=== PATIENT | male | born 1995 | race Caucasian/White ===

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

== ENCOUNTER → 2020-06-08 | Outpatient (CLI) | payer MEDICAID ==
[2020-06-08 13:09] LABS: Appearance,Urine Clear (Clear); Bilirubin,Urine Negative (Negative); Blood,Urine Negative (Negative); Color,Urine Yellow; Glucose,Urine (UA) Negative (Negative); Ketones,Urine Negative (Negative); Leukocyte Esterase,Urine Negative (Negative); Nitrite,Urine Negative (Negative); PH, Urine 7.5 (5.0-8.0); Protein,Urine Negative (Negative); Specific Gravity,Urine 1.009 (1.001-1.035); Urobilinogen,Urine <2.0 mg/dL (<2.0)
[2020-06-08 20:00] LABS: Basophils # (A) 0.06 X 10*3/uL (0.00-0.10); Basophils % (A) 1.1 %; Eosinophils # (A) 0.88 X 10*3/uL (0.04-0.35); HCT 47.3 % (39.6-50.0); HGB 15.4 g/dL (13.0-17.0); Lymphocytes # (A) 1.07 X 10*3/uL (0.90-5.00); Lymphocytes % (A) 19.5 %; MCH 30.4 pg (27.0-32.0); MCHC 32.6 g/dL (32.0-37.0); MCV 93.5 fL (80.0-97.0); Monocytes # (A) 0.34 X 10*3/uL (0.20-1.00); Monocytes % (A) 6.2 %; Neutrophils # (A) 3.14 X 10*3/uL (1.80-7.70); Platelet Count 158 X 10*3/uL (140-440); RBC 5.06 X 10*6/uL (4.40-5.60); RDW 12.9 % (11.5-14.5)
[2020-06-08 20:09] LABS: T4, Free (Free Thyroxine) 0.9 ng/dL (0.80-1.80)
[2020-06-08 20:14] LABS: African American GFR (CKD) 98.9 (60.0-200.0); Albumin 4.4 g/dL (3.80-4.90); Albumin/Globulin Ratio 2.2 (1.60-3.17); Anion Gap 5.5 mmol/L (4.00-12.00); BUN/Creat Ratio 7.5 Ratio (12.00-20.00); Calcium 9.4 mg/dL (8.7-10.3); Carbon Dioxide 29.5 mmol/L (21.6-31.8); Chol/HDL Ratio 3.7; LDL Cholesterol,Calculated 60.2 mg/dL (0.0-131.0); Non-African American GFR(CKD) 85.3 (60.0-200.0); Potassium 4.8 mmol/L (3.5-5.5); Total Bilirubin 0.5 mg/dL (0.2-1.2); Total Protein 6.4 g/dL (6.2-8.2); VLDL Calculation 12.8 mg/dL (5.00-40.00)
== END | disposition home or self-care (01) ==
LOC: LABWHC1 12:16
PROVIDERS: ATTEND Internal Medicine
DX: Z00.00 Encounter for general adult medical examination without abnormal findings (principal); Z13.21 Encounter for screening for nutritional disorder; Z13.220 Encounter for screening for lipoid disorders; Z13.29 Encounter for screening for other suspected endocrine disorder
CPT/HCPCS: 36415; 80053; 80061; 81003; 82306; 84439; 84443; 85025

== ENCOUNTER 2020-09-18 22:10 | Emergency (ER) | payer MEDICAID ==
[2020-09-18 22:21] VITALS: TEMP 98.2
--- NOTE | 2020-09-18 23:15 | XR ---
EXAMINATION TYPE: XR soft tissue neck DATE OF EXAM: 09/18/2020 COMPARISON: NONE HISTORY: Foreign body TECHNIQUE: 2 views FINDINGS: Prevertebral soft tissues are intact. I see no evidence of cervical soft tissue foreign bod y. Epiglottis is normal. Subglottic trachea appears normal. Cervical vertebra have normal spacing and alignment. IMPRESSION: Negative cervical soft tissue exam. No sign of a foreign body.
--- NOTE | 2020-09-18 23:23 | ED ---
ENT HPI - General Chief complaint: ENT Stated complaint: Throat pain Time Seen by Provider: 09/18/20 22:27 Source: patient Mode of arrival: ambulatory - History of Present Illness Initial comments: 24-year-old male with history of significant with esophagitis presents emergency Department with a chief complaint of esophageal foreign body. Patient reports he has recurrent episodes of esophageal foreign bodies usually with me. States earlier today he ate a piece of chicken and it got stuck about 1 hour prior to arrival. Patient reports he was not able to keep any oral down. However, he felt the food go down several minutes prior to arrival. Patient reports he is able to tolerate oral right now, however he has a discomfort in his throat. Mother states she wanted him to be "checked out". Patient denies any further complaints. - Related Data Home Medications Medication Instructions Recorded Confirmed Albuterol Inhaler (Mhu) [Ventolin 2 puff INHALATION DIRECTED 05/14/14 07/31/15 Hfa Inhaler (Mhu)] EPINEPHrine (Auto Inject) [Epipen] 1 each SQ DIRECTED PRN 05/14/14 07/31/15 Allergies Allergy/AdvReac Type Severity Reaction Status Date / Time egg Allergy Severe Anaphylaxis Verified 07/31/15 09:55 Milk Containing Products Allergy Anaphylaxis Verified 07/31/15 09:57 [Dairy] peanut Allergy Anaphylaxis Verified 07/31/15 09:57 Penicillins Allergy Unknown Verified 09/18/20 22:22 Childhood shellfish derived [Shellfish] Allergy Anaphylaxis Verified 09/18/20 22:22 Sulfa (Sulfonamide Allergy Anaphylaxis Verified 07/31/15 09:57 Antibiotics) wheat Allergy Anaphylaxis Verified 07/31/15 09:57 Review of Systems ROS Statement: Those systems with pertinent positive or pertinent negative responses have been documented in the HPI. ROS Other: All systems not noted in ROS Statement are negative. 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 History of Any Multi-Drug Resistant Organisms: None Reported Past Surgical History: No Surgical Hx Reported Past Psychological History: No Psychological Hx Reported Smoking Status: Never smoker Past Alcohol Use History: None Reported Past Drug Use History: None Reported General Exam Limitations: no limitations General appearance: alert, in no apparent distress Head exam: Present: atraumatic, normocephalic, normal inspection Eye exam: Present: normal appearance, PERRL, EOMI Pupils: Present: normal accommodation ENT exam: Present: normal exam, normal oropharynx, mucous membranes moist, TM's normal bilaterally, normal external ear exam Neck exam: Present: normal inspection, full ROM. Absent: tenderness, meningismus, lymphadenopathy, thyromegaly Respiratory exam: Present: normal lung sounds bilaterally. Absent: respiratory distress, wheezes, rales Cardiovascular Exam: Present: regular rate, normal rhythm, normal heart sounds. Absent: systolic murmur GI/Abdominal exam: Present: soft. Absent: distended, guarding, rebound, rigid Extremities exam: Present: normal inspection, full ROM Back exam: Present: normal inspection, full ROM Neurological exam: Present: alert, oriented X3 Psychiatric exam: Present: normal affect, normal mood Skin exam: Present: warm, dry, intact, normal color Course Vital Signs 09/18/20 22:16 Temperature 98.2 F Pulse Rate 92 Respiratory 17 Rate Blood Pressure 112/78 O2 Sat by Pulse 100 Oximetry Medical Decision Making - Medical Decision Making 24-year-old male with history of essential esophagitis presents emergency Department with a chief complaint of esophageal foreign body. Physical examination, patient is well-appearing he is tolerating orals here. ENT examination is unremarkable. X-ray of the neck soft tissues is unremarkable. Patient feels better and would like to go home. Case discussed with Disposition Clinical Impression: Throat discomfort Disposition: HOME SELF-CARE Condition: Stable Instructions (If sedation given, give patient instructions): Esophageal Foreign Body (ED) Additional Instructions: Please return to the Emergency Department if symptoms worsen or any other concerns. Is patient prescribed a controlled substance at d/c from ED?: No Referrals: Catracho Sanches MD [Primary Care Provider] - 1-2 days Time of Disposition: 23:23
[2020-09-18 23:37] VITALS: BP 121/86; PULSE 88; RESP 16
== END 2020-09-18 23:35 | disposition home or self-care (01) ==
LOC: EC 22:10
DX: R07.0 Pain in throat (principal); J45.909 Unspecified asthma, uncomplicated; Z79.51 Long term (current) use of inhaled steroids; Z88.0 Allergy status to penicillin
CPT/HCPCS: 70360; 99283

== ENCOUNTER → 2022-08-19 | Outpatient (CLI) | payer MEDICAID ==
[2022-08-19 21:47] LABS: Basophils # (A) 0.05 X 10*3/uL (0.00-0.10); Basophils % (A) 0.9 %; Eosinophils # (A) 0.33 X 10*3/uL (0.04-0.35); HCT 47.8 % (39.6-50.0); Lymphocytes % (A) 14.5 %; MCH 31.5 pg (27.0-32.0); MCHC 33.5 d/dL (32.0-37.0); MCV 94.1 FL (80.0-97.0); Mean Platelet Volume 12.9 FL (9.5-12.2); Monocytes % (A) 5.5 %; NRBC Per 100 WBC 0 X 10*3/uL (0.00-0.01); Neutrophils # (A) 4.01 X 10*3/uL (1.80-7.70); Neutrophils % (A) 72.9 %; Platelet Count 202 X 10*3/uL (140-440); RBC 5.08 X 10*6/uL (4.40-5.60); RDW 13.9 % (11.5-14.5)
[2022-08-19 22:49] LABS: Erythrocyte Sedimentation Rate 2 mm/Hr (0-15)
[2022-08-20 02:50] LABS: ALT 13 U/L (10-49); AST 18 U/L (14-35); Albumin 4.8 d/dL (3.8-4.9); Albumin/Globulin Ratio 2.29 Ratio (1.60-3.17); Alkaline Phosphatase 86 U/L (41-126); BUN/Creat Ratio 10.25 Ratio (12.00-20.00); Blood Urea Nitrogen 8.2 mg/dL (9.0-27.0); C Reactive Protein <0.30 mg/dL (0.00-0.80); Calcium 9.6 mg/dL (8.7-10.3); Carbon Dioxide 29.5 mmol/L (21.6-31.8); Chloride 103 mmol/L (96-109); Chol/HDL Ratio 3.36 Ratio; Creatine Kinase 55 U/L (35-257); Globulin 2.1 d/dL (1.6-3.3); Glucose 95 mg/dL (70-110); LDL Cholesterol,Calculated 53.4 mg/dL (0.0-131.0); Magnesium 2.2 mg/dL (1.5-2.4); Phosphorus 3.2 mg/dL (2.4-5.1); Potassium 4.6 mmol/L (3.5-5.5); Sodium 143 mmol/L (135-145); Total Bilirubin 0.6 mg/dL (0.3-1.2); Total Protein 6.9 d/dL (6.2-8.2); VLDL Calculation 17.52 mg/dL (5.00-40.00)
== END | disposition home or self-care (01) ==
LOC: LABWHC1 12:40
PROVIDERS: ATTEND Internal Medicine
DX: Z00.00 Encounter for general adult medical examination without abnormal findings (principal); D64.9 Anemia, unspecified; E78.5 Hyperlipidemia, unspecified; E55.9 Vitamin D deficiency, unspecified; I95.9 Hypotension, unspecified; Z80.42 Family history of malignant neoplasm of prostate; R73.9 Hyperglycemia, unspecified
CPT/HCPCS: 36415; 80053; 80061; 82306; 82533; 82550; 83735; 84100; 84153; 84443; 85025; 85652; 86140

== ENCOUNTER → 2022-09-22 | Outpatient (CLI) | payer MEDICAID ==
--- NOTE | 2022-09-22 18:11 | XR ---
EXAMINATION TYPE: XR ankle complete 3 views RT, XR foot complete 3 views RT DATE OF EXAM: 09/22/2022 COMPARISON: None HISTORY: 26-year-old male R2 6.2, pain with walking. FINDINGS: Ankle: Ankle mortise is congruent with preservation of the distal tibiofibular overlap. Talar dome is intact . Some mild anterior and posterior soft tissue swelling is noted. Subtalar joint align. Small delinea tion to the Achilles tendon. Foot: No acute fracture, subluxation, dislocation. IMPRESSION: Ankle and foot. There is mild anterior and posterior soft tissue swelling at the ankle. No acute osse ous abnormality seen.
--- NOTE | 2022-09-22 18:54 | XR ---
EXAMINATION TYPE: XR chest 2V DATE OF EXAM: 09/22/2022 COMPARISON: None HISTORY: 26-year-old male R05.9, cough TECHNIQUE: Frontal and lateral views FINDINGS: The cardiomediastinal silhouette, aorta, and pulmonary vasculature are within normal limits. Lungs an d pleural spaces are clear. IMPRESSION: No acute cardiopulmonary process.
== END | disposition home or self-care (01) ==
LOC: RADXRMAIN 12:05
PROVIDERS: ATTEND Internal Medicine
DX: R05.9 Cough, unspecified (principal); R26.2 Difficulty in walking, not elsewhere classified; M79.89 Other specified soft tissue disorders
CPT/HCPCS: 71046